=== PATIENT | male | born 1950 | race Caucasian/White ===

== ENCOUNTER 2017-05-16 19:37 | Emergency (ER) | payer MEDICARE, OTHER ==
[~2017-05-16] VITALS: Ht 180.3 cm; Wt 105.1 kg
[~2017-05-16 19:37] MED LIST: SIMV40TA PO
[2017-05-16 19:40] VITALS: BP 142/93; PULSE 108; RESP 18; TEMP 97.8; O2SAT 97
[2017-05-16 19:59] LABS: BLOOD, URINE NEG (NEG); GLUCOSE,URINE NEG (NEG); KETONE, URINE NEG (NEG); NITRITE,URINE NEG (NEG); PH, URINE 6.5 (5.0-8.5)
[2017-05-16 20:01] LABS: URINE COLOR STRAW (YELLW/STRAW)
[2017-05-16 20:04] LABS: COMMENT (UR) CULT NOT INDICATED; CULTURE IF INDICATED CULT NOT INDICATED; MUCUS URINE FEW /lpf (OCC); SQUAMOUS EPITHELIAL CELL URINE 0-5 /hpf (0-5); WBC, URINE 0-2 /hpf (0-5)
--- NOTE | 2017-05-16 20:17 | PD ---
HPI Chief Complaint: Complaint Time Seen by Provider: 19:56 Travel History International Travel<30 days: No Contact w/Intl Traveler<30days: No Traveled to known affect area: No History of Present Illness HPI Is a 67-year-old male presents emergency department urgency frequency and decreased urinary stream over the past 2 weeks. He states his been having some urgency felt to his penis recently. He states that he thinks that he is developing some prostate problems. States getting up multiple times at night and always feels like he has to go. He has seen urologist asked for hydrocele but has not seen his urologist sometime. He is not area [place]. His been an appointment until June. Denies abdominal pain nausea vomiting fevers painful urination. Does have a history of esophageal cancer which is in remission, his last BPH was checked by his primary care physician was normal. [facility] Past Medical History Chemotherapy: Yes (FINISHED IN JUL 2016) Past Surgical History Joint Replacement: Yes Social History Alcohol Use: Yes Tobacco Use: No Substance Use: No Allergies-Medications (Allergen,Severity, Reaction): Coded Allergies: No Known Allergies (Unverified , 05/16/17) Reported Meds & Prescriptions Reported Meds & Active Scripts Active Flomax (Tamsulosin HCl) 0.4 Mg Cap 0.4 Mg PO HS Review of Systems Except as stated in HPI: all other systems reviewed are Neg Physical Exam Narrative GENERAL: Well-developed well-nourished no apparent distress. SKIN: Focused skin assessment warm/dry. HEAD: Atraumatic. Normocephalic. EYES: Pupils equal and round. No scleral icterus. No injection or drainage. ENT: No nasal bleeding or discharge. Mucous membranes pink and moist. NECK: Trachea midline. No JVD. CARDIOVASCULAR: Regular rate and rhythm. No murmur appreciated. RESPIRATORY: No accessory muscle use. Clear to auscultation. Breath sounds equal bilaterally. GASTROINTESTINAL: Abdomen soft, minimal tenderness in the suprapubic area., nondistended. Hepatic and splenic margins not palpable. No CVA tenderness. GENITOURINARY: Prostate is smooth, somewhat prominent on the right side. Nontender. No gross blood no gross melena in the stool. He also normal male genitalia. MUSCULOSKELETAL: No obvious deformities. No clubbing. No cyanosis. No edema. NEUROLOGICAL: Awake and alert. No obvious cranial nerve deficits. Motor grossly within normal limits. Normal speech. PSYCHIATRIC: Appropriate mood and affect; insight and judgment normal. Data Data Last Documented VS Vital Signs Date Time Temp Pulse Resp B/P Pulse Ox O2 Delivery O2 Flow Rate FiO2 05/16/17 21:26 80 20 131/74 97 05/16/17 19:40 97.8 Orders Urinalysis - C+S If Indicated (05/16/17 19:47) Ed Poc Ultrasound (05/16/17 ) Urinary Catheter Management ROSITA.Q8H (05/16/17 20:12) Labs Laboratory Tests Test 05/16/17 19:55 Urine Color STRAW Urine Turbidity CLEAR Urine pH 6.5 Urine Specific [place] 1.014 Urine Protein NEG mg/dL Urine Glucose (UA) NEG mg/dL Urine Ketones NEG mg/dL Urine Occult Blood NEG Urine Nitrite NEG Urine Bilirubin NEG Urine Leukocyte Esterase NEG Urine WBC 0-2 /hpf Urine Squamous Epithelial 0-5 /hpf Cells Urine Mucus FEW /lpf Microscopic Urinalysis Comment CULT NOT INDICATED MDM Medical Decision Making Medical Screen Exam Complete: Yes Emergency Medical Condition: Yes Differential Diagnosis Urinary retention, BPH, cystitis, kidney stones seem unlikely. Narrative Course Patient roomed in emergency department, while the bedside ultrasound shows only approximately 250 cc of retained urine, his history is highly suggestive of urinary retention, Garcia catheter was placed and yielded 600 cc of clear urine, the patient had complete relief of symptoms. 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 His UA was negative. He agrees Flomax therapy. [place] and will follow-up with the urologist as well as possible. Discussed with him return to ED criteria. As he is an SURTASS A[employer] he is comfortable with moving his Garcia catheter home, he was given a 12 cc syringe and demonstrated that he knew how to take out the Garcia catheter, recommend that he leave it in place for a week and then came herself remove at home for trial of urination. If unsuccessful he should return to the emergency department. If there is any question about self removal of the Garcia catheter he is to return to the emergency department. Stable for discharge at this time. Diagnosis Primary Impression: Urinary retention Referrals: Urologist Patient Instructions: Garcia Catheter Placement and Care (DC), General Instructions, Urinary Retention in Men (DC) Med/Other Pt SpecificInfo: Prescription(s) given Scripts Tamsulosin (Flomax)0.4 Mg Cap0.4 Mg PO HS #30 CAP Ref 0 Prov:Rashaun Harry MD 05/16/17 Disposition: 01 DISCHARGE HOME Condition: Stable Rashaun Harry MD May 16, 2017 20:17
[2017-05-16] MEDS ORDERED: TAMS5CAP PO (21:11)
[2017-05-16 21:26] VITALS: BP 131/74
== END 2017-05-16 21:37 | disposition home or self-care (01) ==
LOC: PHED 19:37
DX: R33.9 Retention of urine, unspecified (principal)
CPT/HCPCS: 51702; 81001